=== PATIENT | female | born 1985 | race American Indian/Alaskan Native ===

== ENCOUNTER 2017-10-24 19:52 | Emergency (ER) | payer SELFPAY ==
[2017-10-24 22:49] LABS: HCG Qualitative,Urine Negative (Negative)
[2017-10-24 22:56] LABS: Bacteria,Urine 1+ /HPF (Negative); Bilirubin,Urine NEG (Negative); Blood,Urine NEG (Negative); Color,Urine Yellow (Yellow); Mucus,Urine FEW /HPF; Protein,Urine <15 mg/dL mg/dL (Negative); RBC,Urine < 1.0 /HPF (0.0-6.0); Urobilinogen,Urine < 2.0 mg/dL (<2.0)
--- NOTE | 2017-10-25 02:48 | Emergency Department Report ---
ED Female HPI - General Chief complaint: Urogenital-Female Stated complaint: ABDOMINAL PAIN Time Seen by Provider: 10/25/17 01:12 Source: patient Mode of arrival: Ambulatory Limitations: No Limitations - History of Present Illness Initial comments: This is a 31 y.o. female that presents with pelvic pain and vaginal discharge for 3 days. Patient reports douching and using feminine wipes but discharge increased. Reports discharge is clear with a foul odor. Denies new partners and having intercourse since June of last year. States it could possibly be an STD because she had symptoms a few months ago but douching and wipes worked. Denies nausea, vomiting, vaginal bleeding, frequency, urgency, low back pain, and dysuria. MD Complaint: vaginal discharge, pelvic pain, possible STD -: days(s) (3) Radiation: suprapubic Severity: moderate Severity scale (0 -10): 6 Quality: cramping Consistency: intermittent Worsens with: none Are you Now?: No Associated Symptoms: vaginal discharge. denies: vaginal bleeding, abdominal pain, nausea/vomiting, fever/chills, headaches, loss of appetite, dysuria, hematuria, rash, seizure, shortness of breath, syncope, weakness - Related Data Sexually active: Yes Previous Rx's Medication Instructions Recorded Last Taken Type Nitrofurantoin Crawford/M-Cryst 100 mg PO Q12HR #14 capsule 07/24/13 Unknown Rx [Macrobid] metroNIDAZOLE [Metronidazole] 500 mg PO BID 7 Days #14 tablet 10/25/17 Unknown Rx Allergies Allergy/AdvReac Type Severity Reaction Status Date / Time No Known Allergies Allergy Unverified 07/24/13 12:59 ED Review of Systems ROS: Stated complaint: ABDOMINAL PAIN Other details as noted in HPI Constitutional: denies: chills, fever Respiratory: denies: cough, shortness of breath, wheezing Cardiovascular: denies: chest pain, palpitations Gastrointestinal: abdominal pain. denies: nausea, vomiting, diarrhea Genitourinary: discharge (clear with odor). denies: urgency, dysuria, frequency , hematuria, abnormal menses Musculoskeletal: denies: back pain, joint swelling, arthralgia Neurological: denies: headache, weakness, numbness, paresthesias Psychiatric: denies: anxiety, depression ED Past Medical Hx - Past Medical History Previous Medical History?: No - Surgical History Additional Surgical History: right ankle surgery - Social History Smoking Status: Never Smoker Substance Use Type: None - Medications Home Medications: Home Medications Medication Instructions Recorded Confirmed Last Taken Type Nitrofurantoin Crawford/M-Cryst 100 mg PO Q12HR #14 capsule 07/24/13 Unknown Rx [Macrobid] metroNIDAZOLE [Metronidazole] 500 mg PO BID 7 Days #14 tablet 10/25/17 Unknown Rx ED Physical Exam - General Limitations: No Limitations General appearance: alert, in no apparent distress - Respiratory Respiratory exam: Present: normal lung sounds bilaterally. Absent: respiratory distress - Cardiovascular Cardiovascular Exam: Present: regular rate, normal rhythm, normal heart sounds. Absent: systolic murmur, diastolic murmur, rubs, gallop - GI/Abdominal GI/Abdominal exam: Present: soft, normal bowel sounds. Absent: distended, tenderness, guarding, rebound, rigid, organomegaly, mass - Back Exam Back exam: Present: normal inspection, full ROM. Absent: CVA tenderness (R), CVA tenderness (L), muscle spasm - Neurological Exam Neurological exam: Present: alert, oriented X3, normal gait - Psychiatric Psychiatric exam: Present: normal affect, normal mood - Skin Skin exam: Present: warm, dry, intact, normal color. Absent: rash ED Course Vital Signs 10/24/17 20:02 Temperature 98 F Pulse Rate 67 Respiratory 18 Rate Blood Pressure 126/75 O2 Sat by Pulse 99 Oximetry ED Medical Decision Making - Medical Decision Making This is a 31 y.o. female presents with pelvic pain and vaginal discharge for 3 days. Patient was examined by me. Obtained UA and HCG, unremarkable. Discussed results with patient. Discussed options to be empirically treated for STI and f/ u with Health Department or PCP. Patient agreed to be empirically treated with rocephin 250 mg IM, azithromycin 1 gram po in ER and start metronidazole 500 mg po bid x 7 days. Discharged home in stable condition. Discussed prevention options. F/U with PCP or Health Department. Critical care attestation.: If time is entered above; I have spent that time in minutes in the direct care of this critically ill patient, excluding procedure time. ED Disposition Clinical Impression: Exposure to STD, Pelvic pain, Vaginal discharge Disposition: TO HOME OR SELFCARE Is pt being admited?: No Does the pt Need Aspirin: No Condition: Stable Instructions: Safe Sex (ED), Sexually Transmitted Diseases (ED) Additional Instructions: Avoid drinking alcohol for 24 hours. Continue safe sexual intercourse. Follow up with Primary Care Provider or health department in 2-3 days. Prescriptions: metroNIDAZOLE [Metronidazole] 500 mg PO BID 7 Days #14 tablet Referrals: [facility] [Outside] - 3-5 Days [facility] [Outside] - 3-5 Days [facility] [Outside] - 3-5 Days [facility] [Outside] - 3-5 Days Forms: Work/School Release Form(ED) Time of Disposition: 02:55 Print Language: [place]
[2017-10-25] MEDS ORDERED: ROCEPHIN IM ONE (02:56)
[2017-10-25] MEDS ORDERED: ZITHROMAX PO ONE (02:56)
[2017-10-25] MEDS ORDERED: XYLOCAINE 1% MPF 5 mL INFILTRATI ONE (02:56)
[2017-10-25 04:50] VITALS: BP 121/75
== END 2017-10-25 03:45 | disposition home or self-care (01) ==
LOC: ED 19:52
DX: R10.2 Pelvic and perineal pain (principal); N89.8 Other specified noninflammatory disorders of vagina
CPT/HCPCS: 81001; 81025; 96372; 99283; J0696